=== PATIENT | male | born 1965 | race Caucasian/White ===

== ENCOUNTER 2017-04-12 12:41 | Observation (INO) | payer OTHER ==
--- NOTE | 2017-04-12 13:00 | RADIOLOGY REPORT (SQ) ---
EXAM DESCRIPTION: CT HEAD WITHOUT COMPLETED DATE/TIME: 04/12/2017 12:49 pm REASON FOR STUDY: STROKE COMPARISON: None. TECHNIQUE: Axial images acquired through the brain without intravenous contrast. Images reviewed wi th bone, brain and subdural windows. Images stored on PACS. All CT scanners at this facility use dose modulation, iterative reconstruction, and/or weight based d osing when appropriate to reduce radiation dose to as low as reasonably achievable (ALARA). [facility]: Dose Right [facility]: CareDose [facility]: Dose Right [facility]: Teradose 4D [facility]: [employer] RADIATION DOSE: mGy. LIMITATIONS: None. FINDINGS: VENTRICLES: Normal size and contour. CEREBRUM: No masses. No hemorrhage. No midline shift. There is a small focal relative low density area in the periventricular white matter on the left adjacent to the lateral ventricle which has the appearance of lacunar infarct. Normal lebron/white matter differentiation. CEREBELLUM: No masses. No hemorrhage. No alteration of density. No evidence for acute infarction. EXTRAAXIAL SPACES: No fluid collections. No masses. ORBITS AND GLOBE: No intra- or extraconal masses. Normal contour of globe without masses. CALVARIUM: No fracture. PARANASAL SINUSES: No fluid or mucosal thickening. SOFT TISSUES: No mass or hematoma. OTHER: No other significant finding. IMPRESSION: Small focal relative low density area in the periventricular white matter on the left as noted above which has the appearance of a lacunar infarct. No other significant intracranial abnorm alities were identified. Other findings as noted above COMMENT: Quality ID # [id number]: Final reports with documentation of one or more dose reduction techniques (e.g., Automated exposure control, adjustment of the mA and/or kV according to patient size, use of iterative reconstruction technique) TECHNICAL DOCUMENTATION: JOB ID: [id number] [employer]- All Rights Reserved
[2017-04-12 13:06] LABS: PARTIAL THROMBOPLASTIN TIME 26.5 SEC (23.5-35.8)
[2017-04-12 13:10] LABS: ABSOLUTE EOSINOPHILS # (AUTO) 0.1 10^3/uL (0.0-0.6); ABSOLUTE LYMPHOCYTES (AUTO) 2.8 10^3/uL (0.5-4.7); ABSOLUTE MONOCYTES (AUTO) 0.9 10^3/uL (0.1-1.4); ABSOLUTE NEUT (AUTO) 4.7 10^3/uL (1.7-8.2); BASOPHILS % (AUTO) 0.6 % (0-2); EOSINOPHILS % (AUTO) 1.2 % (0-6); HEMATOCRIT 48.5 % (37.9-51.0); HEMOGLOBIN 16.9 g/dL (13.5-17.0); LYMPHOCYTES % (AUTO) 32.2 % (13-45); MEAN CORPUSCULAR HEMOGLOBIN 30.8 pg (27.0-33.4); MEAN CORPUSCULAR HGB CONC 34.9 g/dL (32.0-36.0); MEAN CORPUSCULAR VOLUME 88 fl (80-97); MONOCYTES % (AUTO) 10.5 % (3-13); PLATELET COUNT 319 10^3/uL (150-450); RED BLOOD COUNT 5.49 10^6/uL (4.35-5.55); RED CELL DISTRIBUTION WIDTH 13.4 % (11.5-14.0); SEGMENTED NEUTROPHILS % (AUTO) 55.5 % (42-78); TOTAL CELLS COUNTED % (AUTO) 100 %; WHITE BLOOD COUNT 8.5 10^3/uL (4.0-10.5)
[2017-04-12 13:11] LABS: INTERNATIONAL RATION (INR) 0.94; PROTHROMBIN TIME 13.3 SEC (11.4-15.4)
--- NOTE | 2017-04-12 13:11 | ER Document Report ---
ED General - General Chief Complaint: S/S of Possible Stroke Stated Complaint: POSSIBLE STROKE Time Seen by Provider: 04/12/17 13:11 - HPI Patient complains to provider of: possible stroke Notes: 52-year-old man with history of TIAs in the past presents with concern for possible TIA. Patient is endorsing left upper extremity and left lower extremity decreased sensation and tingling. Patient thinks it started last night. Patient states he woke up this morning continue to have symptoms. Went to his PTSD support group. There the symptoms got worse. Patient presents NIH stroke scale 1. Speaking fluently no facial asymmetry. Denies nausea or vomiting. - Related Data Allergies/Adverse Reactions: No Known Allergies Allergy (Verified 04/12/17 13:51) Past Medical History - Social History Smoking Status: Unknown if Ever Smoked Family History: Reviewed & Not Pertinent - Past Medical History Cardiac Medical History: Reports: Hx Heart Attack - with stent placement, Hx Hypercholesterolemia Pulmonary Medical History: Denies: Hx Tuberculosis Past Surgical History: Reports: Hx Appendectomy - 1985. Denies: Hx Pacemaker - Immunizations Hx Diphtheria, Pertussis, Tetanus Vaccination: Yes Review of Systems - Review of Systems Constitutional: No symptoms reported EENT: No symptoms reported Cardiovascular: No symptoms reported Respiratory: No symptoms reported Gastrointestinal: No symptoms reported Genitourinary: No symptoms reported Male Genitourinary: No symptoms reported Musculoskeletal: No symptoms reported Skin: No symptoms reported Hematologic/Lymphatic: No symptoms reported Neurological/Psychological: Numbness Physical Exam - Vital signs Vitals: Resp 16 04/12/17 12:55 Interpretation: Normal - General General appearance: Appears well, Alert - HEENT Head: Normocephalic, Atraumatic Eyes: Normal Pupils: PERRL - Respiratory Respiratory status: No respiratory distress Chest status: Nontender Breath sounds: Normal Chest palpation: Normal - Cardiovascular Rhythm: Regular Heart sounds: Normal auscultation Murmur: No - Abdominal Inspection: Normal Distension: No distension Bowel sounds: Normal Tenderness: Nontender Organomegaly: No organomegaly - Back Back: Normal, Nontender - Extremities General upper extremity: Normal inspection, Nontender, Normal color, Normal ROM , Normal temperature General lower extremity: Normal inspection, Nontender, Normal color, Normal ROM , Normal temperature, Normal weight bearing. No: Mehran's sign - Neurological Neuro grossly intact: Yes Cognition: Normal Orientation: AAOx4 [place] Coma Scale Eye Opening: Spontaneous Edmar Coma Scale Verbal: Oriented [place] Coma Scale Motor: Obeys Commands Ed[place] Coma Scale Total: 15 Speech: Normal Motor strength normal: LUE, RUE, LLE, RLE Sensory: Normal - Psychological Associated symptoms: Normal affect, Normal mood - Skin Skin Temperature: Warm Skin Moisture: Dry Skin Color: Normal Course - Re-evaluation Re-evalutation: 04/12/17 14:07 Patient not a candidate for TPA outside window symptoms started about 6 hours ago. Patient also actually says it symptoms last night before bed. Extensive workup here unremarkable CAT scan shows no acute stroke. Patient be admitted to the hospital for further management of stroke, MRI, echocardiogram, ultrasound carotid - Vital Signs Vital signs: Temp Pulse Resp BP Pulse Ox 12 123/84 96 04/12/17 13:31 04/12/17 13:31 04/12/17 13:31 - Laboratory Result Diagrams: 04/12/17 12:32 04/12/17 12:32 - EKG Interpretation by Me Additional EKG results interpreted by me: 04/12/17 14:06 Normal sinus rhythm, no ST elevations or depressions, normal QRS Discharge - Discharge Clinical Impression: CVA (cerebral vascular accident) Condition: Stable Disposition: ADMITTED INPATIENT Admitting Provider: [facility] Admitted: Telemetry
--- NOTE | 2017-04-12 13:16 | RADIOLOGY REPORT (SQ) ---
EXAM DESCRIPTION: CHEST SINGLE VIEW COMPLETED DATE/TIME: 04/12/2017 12:54 pm REASON FOR STUDY: bed 12 stroke alert COMPARISON: January 2013 EXAM PARAMETERS: NUMBER OF VIEWS: One view. TECHNIQUE: Single frontal radiographic view of the chest acquired. RADIATION DOSE: NA LIMITATIONS: None. FINDINGS: LUNGS AND PLEURA: No opacities, masses or pneumothorax. No pleural effusion. Tiny pulmona ry nodule projected in the left mid lung field appears stable. Linear scarring or subsegmental atele ctasis is identified in the left costophrenic angle. MEDIASTINUM AND HILAR STRUCTURES: No masses. Contour normal. HEART AND VASCULAR STRUCTURES: Heart normal in size. Normal vasculature. BONES: No acute findings. HARDWARE: None in the chest. OTHER: No other significant finding. IMPRESSION: NO ACUTE RADIOGRAPHIC FINDING IN THE CHEST. TECHNICAL DOCUMENTATION: JOB ID: [id number] [employer]- All Rights Reserved
[2017-04-12 13:32] LABS: ALANINE AMINOTRANSFERASE 47 U/L (21-72); ALBUMIN 4.8 g/dL (3.5-5.0); ALKALINE PHOSPHATASE 82 U/L (38-126); ANION GAP 13 (5-19); ASPARTATE AMINO TRANSFERASE 31 U/L (17-59); BILIRUBIN,DIRECT 0.2 mg/dL (0.0-0.4); BILIRUBIN,TOTAL 0.7 mg/dL (0.2-1.3); BLOOD UREA NITROGEN 18 mg/dL (7-20); CARBON DIOXIDE 26 mmol/L (22-30); CHLORIDE 103 mmol/L (98-107); CREATINE KINASE 102 U/L (55-170); GLUCOSE 84 mg/dL (75-110); POTASSIUM 4.4 mmol/L (3.6-5.0); SODIUM 141.8 mmol/L (137-145); TOTAL PROTEIN 7.6 g/dL (6.3-8.2)
[2017-04-12 13:54] LABS: CREATINE KINASE MB 1.02 ng/mL (<4.55)
[2017-04-12 13:55] LABS: TROPONIN I < 0.012 ng/mL
[2017-04-12] MEDS ORDERED: TRAMADOL HCL 50 MG TABLET PO PRN (16:07)
[2017-04-12] MEDS ORDERED: ALPRAZOLAM 0.5 MG TABLET PO PRN (16:14)
[2017-04-12] MEDS ORDERED: HYDRALAZINE HCL INJ/PF 20 MG/1 ML SDV IV PRN (16:17)
[2017-04-12] MEDS ORDERED: DEXTROSE 40% GEL 15 GM TUBE PO PRN ×2 (16:21)
[2017-04-12] MEDS ORDERED: GLUCAGON,HUMAN RECOMB 1 MG INJ IM PRN (16:21)
[2017-04-12] MEDS ORDERED: DEXTROSE 50%-WATER 25 GM/50 ML DISP.SYRIN IV PRN ×2 (16:21)
[2017-04-12] MEDS ORDERED: ZOLPIDEM TARTRATE 5 MG TABLET PO PRN (16:21)
[2017-04-12] MEDS ORDERED: INSULIN LISPRO 100 UNIT/ML 3 ML VIAL SUBCUT PRN (16:21)
--- NOTE | 2017-04-12 16:38 | PDOC H&P ---
History of Present Illness Admission Date/PCP: 04/12/17 14:22 Patient complains of: Tingling in the left arm and left leg. History of Present Illness: MARCO A HEBERT is a 52 year old male known coronary artery disease and cerebrovascular disease. The patient has had several days of increasing tingling in the left upper extremity. When he woke up this morning he still had tingling in the left upper extremity. He also described worsening chest pressure. His chest pressure occurred at rest. He does have a history of coronary disease and has had intermittent unstable angina but he does have chronic chest pressure and angina. He also describes other symptoms of his head burning. This is not a new complaint for the patient. He went to his posttraumatic stress disorder meeting and when he got up to leave he felt dizzy and lightheaded. Then, the left side of his mouth became numb. Many of his symptoms are not new but have been waxing and waning over several months. Many of his PTSD medications were recently discharged by the [facility]. Approximately 9 months ago he was an inpatient at [facility] for psychiatric illness. The patient has had 3 heart catheterizations and has [address] Prior to this event he has had 2 transient ischemic attacks. Past Medical History Cardiac Medical History: Reports: Myocardial Infarction - with stent placement, Hyperlipidema, Hypertension Pulmonary Medical History: Reports: Sleep Apnea Denies: Tuberculosis Psychiatric Medical History: Reports: Depression - anxiety, Post Traumatic Stress Disorder Past Surgical History Past Surgical History: Reports: Appendectomy - 1985, Cardiac Catheterization Denies: Pacemaker Social History Information Source: Patient Smoking Status: Never Smoker Frequency of Alcohol Use: Rare Hx Recreational Drug Use: No Drugs: None Hx Prescription Drug Abuse: No - Advance Directive Resuscitation Status: Full Code Surrogate healthcare decision maker:: The patient states that his Shayna Hebert is his surrogate decision maker. She can be reached at [phone]. Family History Family History: Reviewed & Not Pertinent Parental Family History Reviewed: Yes - Father of [place] at age 57, mother had triple bypass, sister has coronary Children Family History Reviewed: Yes Sibling(s) Family History Reviewed.: Yes Medication/Allergy Home Medications: Alprazolam 0.5 mg PO BID PRN 01/07/12 Fluoxetine HCl [Sarafem] 40 mg PO DAILY 01/07/12 Topiramate [Topiragen] 25 - 100 mg PO QHS 01/07/12 Allergies/Adverse Reactions: No Known Allergies Allergy (Verified 04/12/17 13:51) Review of Systems Constitutional: PRESENT: fatigue, weakness Eyes: PRESENT: visual disturbances Ears: ABSENT: hearing changes Nose, Mouth, and Throat: PRESENT: headache(s) Breasts: ABSENT: as per HPI, other Cardiovascular: PRESENT: chest pain, dyspnea on exertion Respiratory: PRESENT: dyspnea Gastrointestinal: ABSENT: as per HPI, abdominal pain, bloating, coffee ground emesis, constipation, diarrhea, dysphagia, heartburn, hematemesis, hematochezia , melena, nausea, vomiting, other Genitourinary: PRESENT: nocturia Musculoskeletal: PRESENT: muscle weakness Integumentary: ABSENT: as per HPI, diaphoresis, erythema, lesions, pruritus, rash, wounds, other Neurological: PRESENT: abnormal speech, confusion, dizziness, lack of coordination, memory loss, numbness, paresthesias, weakness Psychiatric: PRESENT: anxiety, depression Endocrine: PRESENT: polyuria Hematologic/Lymphatic: ABSENT: as per HPI, easy bleeding, easy bruising, lymphadenopathy, other Allergic/Immunologic: ABSENT: as per HPI, seasonal rhinorrhea, other Physical Exam Vital Signs: Temp Pulse Resp BP Pulse Ox 98.6 F 70 14 119/81 97 04/12/17 15:28 04/12/17 15:31 04/12/17 15:28 04/12/17 15:28 04/12/17 15:28 Additional comments: The patient is an obese white male. He is conversant and answers questions appropriately and he is able to follow all commands. His level of alertness is normal. He did get up and walk from the hallway into his room and he was able to get into his bed without any assistance. The patient's facial appearance is noteworthy for anisocoria. The right pupil is approximately 2 mm larger than the left pupil. Both constrict to light briskly. The oropharynx demonstrates a Mallampati 3 airway. His neck is enlarged but otherwise supple. I was unable to palpate his thyroid gland. His lungs are clear to auscultation bilaterally. His cardiac exam is regular without murmurs, gallops or rubs. The abdomen is obese but soft. Bowel sounds are present in the lower quadrants. No guarding or rebound is noted and there are no hernias or masses present. The lower extremities are warm to touch without edema. The skin is, warm, dry and intact without lesions or rashes. The patient's right upper extremity is of normal strength with a normal deep tendon reflex. The right lower extremity is of normal strength with normal deep tendon reflex. Left lower extremity is of normal strength with a deep tendon reflex is diminished. Left upper extremity shows some cogwheeling with motion. However, patient moves all 4 extremities intermittently and purposefully. The patient's facial appearance does not demonstrate an obvious droop. He is not slurring his words. His addiction appears to be normal. Initially, his tongue was deviated to the right, but then it was midline. He does appear to have weakened abducens nerve on the left. Results Impressions: Head CT 04/12/17 00:00 IMPRESSION: Small focal relative low density area in the periventricular white matter on the left as noted above which has the appearance of a lacunar infarct. No other significant intracranial abnormalities were identified. Other findings as noted above Chest X-Ray 04/12/17 12:45 IMPRESSION: NO ACUTE RADIOGRAPHIC FINDING IN THE CHEST. Assessment & Plan - Diagnosis (1) CVA (cerebral vascular accident) Is this a current diagnosis for this admission?: Yes Plan: The patient's head CT does show a lacunar infarct. Chronicity is unknown. I have ordered a stat CTA of the head and neck based on his asymmetrical pupils. The patient will be maintained on aspirin and Effient. I have increased his dose of atorvastatin. He will undergo PT, OT and speech therapy evaluations. Depending on the results of the CTA of the head and neck I may or may not order carotid Doppler. I am not going to order an echocardiogram because the patient has had an echocardiogram last week and we will obtain these results if needed. This only demonstrated mild LV dysfunction, but the whole report was not available to me. (2) Coronary artery disease Is this a current diagnosis for this admission?: Yes Plan: We will continue aspirin, Effient, atorvastatin and metoprolol. I was unable to verify the patient's medication dosages but this will be confirmed when they are available. (3) Obstructive sleep apnea Is this a current diagnosis for this admission?: Yes Plan: The patient will use his CPAP machine while he is here. His is going to bring it in. (4) Morbid obesity Is this a current diagnosis for this admission?: Yes Plan: The patient takes metformin at home. I suspect that he has metabolic syndrome. Here, I am going to hold metformin because he will receive IV contrast. He will get fingersticks and be placed on sliding scale insulin protocol. (5) Posttraumatic stress disorder Is this a current diagnosis for this admission?: Yes Plan: Continue Prozac and Xanax. Continue Ambien for sleep. - Time Time Spent: 30 to 50 Minutes - Inpatient Certification Medical Necessity: Failure to Improve With Outpatient Therapy, Significant Comorbidiites Make Outpatient Treatment Too Risky, Need Close Monitoring Due to Risk of Patient Decompensation, Need for Neurological Checks, Risk of Complication if Not Cared For in Hospital, Risk of Diagnosis Which Will Require Inpatient Eval/Care/Monitoring - Plan Summary Plan Summary: The patient will be admitted to observation. He will undergo the workup as described above. I anticipate that he will be here less than 2 midnights.
[2017-04-12] MEDS ORDERED: ASPIRIN 81 MG TABLET, CHEWABLE PO ONE (16:49)
[2017-04-12] MEDS ORDERED: ASPIRIN 81 MG TABLET, ENT COATED PO SCH (17:00)
[2017-04-12 17:16] LABS: INTERNATIONAL RATION (INR) 0.94; PARTIAL THROMBOPLASTIN TIME 26.9 SEC (23.5-35.8); PROTHROMBIN TIME 13.2 SEC (11.4-15.4)
[2017-04-12] MEDS ORDERED: PRASUGREL HCL 10 MG TABLET PO ONE (17:30)
[2017-04-12 17:36] LABS: CREATINE KINASE MB 0.85 ng/mL (<4.55)
[2017-04-12 17:44] LABS: TROPONIN I < 0.012 ng/mL
--- NOTE | 2017-04-12 18:20 | RADIOLOGY REPORT (SQ) ---
EXAM DESCRIPTION: CTA NECK COMPLETED DATE/TIME: 04/12/2017 5:58 pm REASON FOR STUDY: CVA COMPARISON: None. TECHNIQUE: Axial dynamic scanning technique with dynamic contrast enhancement through the extra-pouring crane operator nial carotid and vertebral arteries. Multiplanar reconstruction. 3-D MIPS and Volume-rendered imag es acquired at the workstation and saved to PACS. Images are reviewed in soft tissue, bone, lung w indows. All CT scanners at this facility use dose modulation, iterative reconstruction, and/or weight based d osing when appropriate to reduce radiation dose to as low as reasonably achievable (ALARA). [facility]: Dose Right [facility]: CareDose [facility]: Dose Right [facility]: Teradose 4D [facility]: [employer] CONTRAST TYPE AND DOSE: contrast/concentration: Isovue 370.00 mg/ml; Total Contrast Delivered: 70.0 ml; Total Saline Delivered: 75.0 ml RENAL FUNCTION: Creatinine 1.25 LIMITATIONS: None. FINDINGS: AORTIC ARCH: Normal three-vessel origin. Bilateral subclavian arteries are patent. No d issection. RIGHT CAROTIDS: Patent common, internal and external carotid arteries without suggestion of significa nt stenosis or irregular plaque. No dissection. RIGHT VERTEBRAL: Patent. No dissection. LEFT CAROTIDS: Patent common, internal and external carotid arteries without suggestion of significan t stenosis or irregular plaque. No dissection. LEFT VERTEBRAL: Patent. No dissection. OTHER: Multiple bilateral prominent cervical lymph nodes are identified OTHER: 3-D reconstructions confirm findings. IMPRESSION: NORMAL CTA OF THE EXTRA-CRANIAL CAROTID AND VERTEBRAL ARTERIES. COMMENT: Quality ID #[id number]: Measurements of distal internal carotid diameter were used as the denomina tor for stenosis measurement. TECHNICAL DOCUMENTATION: JOB ID: [id number] Quality ID # 436: Final reports with documentation of one or more dose reduction techniques (e.g., Au tomated exposure control, adjustment of the mA and/or kV according to patient size, use of iterative reconstruction technique) 2010 [employer]- All Rights Reserved
--- NOTE | 2017-04-12 18:23 | RADIOLOGY REPORT (SQ) ---
EXAM DESCRIPTION: CTA HEAD COMPLETED DATE/TIME: 04/12/2017 5:59 pm REASON FOR STUDY: CVA COMPARISON: None. TECHNIQUE: Post IV contrast scanning, thin section axial imaging through the brain to evaluate the a rterial structures. Source and MIP images are saved and reviewed on PACS. Advanced 3D imaging as volume-rendering, MIPs, SSD performed? yes All CT scanners at this facility use dose modulation, iterative reconstruction, and/or weight based d osing when appropriate to reduce radiation dose to as low as reasonably achievable (ALARA). [facility]: Dose Right [facility]: CareDose [facility]: Dose Right [facility]: Teradose 4D [facility]: [employer] CONTRAST TYPE AND DOSE: 70 mL Isovue 370 RENAL FUNCTION: Creatinine 1.25 LIMITATIONS: None. FINDINGS: [place]: The anterior, middle, posterior cerebral arteries are all patent. No ev idence of aneurysm or focal stenosis. POSTERIOR CIRCULATION: The distal vertebral arteries are patent as is the basilar artery. No aneurysm . BRAIN: No gross enhancing lesions as visualized. The superior cerebral hemispheres are not included in the field of view. BONES: Intact as visualized. SINUSES: No fluid or mucosal thickening. OTHER: No other significant finding. IMPRESSION: NO CTA EVIDENCE OF STENOSIS OR ANEURYSM OF THE [place]. TECHNICAL DOCUMENTATION: JOB ID: [id number] Quality ID # [id number]: Final reports with documentation of one or more dose reduction techniques (e.g., Au tomated exposure control, adjustment of the mA and/or kV according to patient size, use of iterative reconstruction technique) 2010 [employer]- All Rights Reserved
[2017-04-12] MEDS: METOPROLOL TARTRATE 25 MG TABLET PO SCH (21:57)
[2017-04-12] MEDS ORDERED: ATORVASTATIN CALCIUM 80 MG TABLET PO SCH (22:00)
[2017-04-12 23:27] LABS: CREATINE KINASE MB 0.64 ng/mL (<4.55)
[2017-04-12 23:28] LABS: TROPONIN I < 0.012 ng/mL
[2017-04-13 05:22] LABS: CHOLESTEROL 219.11 mg/dL (0-200); TRIGLYCERIDES 191 mg/dL (<150)
[2017-04-13 05:33] LABS: DIRECT LDL 141 mg/dL (<100)
[2017-04-13 05:35] LABS: CREATINE KINASE MB 0.59 ng/mL (<4.55)
[2017-04-13 05:43] LABS: TROPONIN I < 0.012 ng/mL; VLDL CHOLESTEROL 38.2 mg/dL (10-31)
--- NOTE | 2017-04-13 09:23 | RADIOLOGY REPORT (SQ) ---
EXAM DESCRIPTION: MRI HEAD WITHOUT COMPLETED DATE/TIME: 04/13/2017 9:02 am REASON FOR STUDY: acute neurologic syndrome COMPARISON: None. TECHNIQUE: Multiplanar imaging includes non-contrasted T1, T2, FLAIR, and diffusion with ADC map seq uences. Images stored on PACS. LIMITATIONS: None. FINDINGS: ANATOMY: No anomalies. Normal vascular flow voids. Pituitary fossa normal. CSF SPACES: Normal in size and contour. No hemorrhage. CEREBRUM: Sulci and gyri normal in size and contour. Normal white matter signal on FLAIR imaging. No evidence of hemorrhage, mass, or extraaxial fluid collection. POSTERIOR FOSSA: No signal alteration. No hemorrhage. No edema, masses or mass effect. Internal susanna tory canals, cerebello-pontine angles, mastoids normal. DIFFUSION IMAGING: Negative for acute or sub-acute infarction. ORBITS: No masses. Globes normal. PARANASAL SINUSES: No fluid levels. Mucosa normal. OTHER: No other significant finding. IMPRESSION: NORMAL MRI OF THE BRAIN WITHOUT INTRAVENOUS GADOLINIUM CONTRAST. EVIDENCE OF ACUTE STROKE: NO. TECHNICAL DOCUMENTATION: JOB ID: [id number] [employer]- All Rights Reserved
[2017-04-13] MEDS ORDERED: FLUOXETINE HCL 40 MG PO SCH (10:00)
[2017-04-13] MEDS ORDERED: ASPIRIN 81 MG TABLET, ENT COATED PO SCH (10:00)
[2017-04-13] MEDS ORDERED: PRASUGREL HCL 10 MG TABLET PO SCH (10:00)
[2017-04-13] MEDS ORDERED: FLUOXETINE HCL 20 MG CAPSULE PO SCH (10:00)
[2017-04-13] MEDS: METOPROLOL TARTRATE 25 MG TABLET PO SCH (10:49)
--- NOTE | 2017-04-13 11:06 | EKG REPORT ---
SEVERITY:- BORDERLINE ECG - SINUS BRADYCARDIA BORDERLINE INFERIOR Q WAVES : Confirmed by: Nelly Cooper 13-Apr-2017 11:05:17
--- NOTE | 2017-04-13 11:06 | EKG REPORT ---
SEVERITY:- ABNORMAL ECG - SINUS RHYTHM NONSPECIFIC INTRAVENTRICULAR CONDUCTION DELAY BORDERLINE INFERIOR Q WAVES : Confirmed by: Nelly Cooper 13-Apr-2017 11:05:23
--- NOTE | 2017-04-13 14:27 | PDOC DISCHARGE SUMMARY ---
General - Admit/Disc Date/PCP Admission Date/Primary Care Provider: 04/12/17 14:22 Discharge Date: 04/13/17 - Discharge Diagnosis (1) Transient ischemic attack (TIA) Is this a current diagnosis for this admission?: Yes (2) CVA (cerebral vascular accident) Is this a current diagnosis for this admission?: No (3) Coronary artery disease Is this a current diagnosis for this admission?: Yes (4) Obstructive sleep apnea Is this a current diagnosis for this admission?: Yes (5) Morbid obesity Is this a current diagnosis for this admission?: Yes (6) Posttraumatic stress disorder Is this a current diagnosis for this admission?: Yes - Additional Information Resuscitation Status: Full Code Discharge Diet: Other (Comments) - Low fat, low sodium diet Prescriptions: Atorvastatin Calcium [Lipitor 40 mg Tablet] 80 mg PO QPM 30 Days #60 tablet Home Medications: Alprazolam [Xanax] 1 mg PO BID 04/13/17 Aripiprazole [Abilify 10 mg Tablet] 5 mg PO DAILY 04/13/17 Aspirin [Aspirin 81 mg Chewable Tablet] 81 mg PO DAILY 04/13/17 Atorvastatin Calcium [Lipitor 40 mg Tablet] 80 mg PO QPM 30 Days #60 tablet Fluoxetine HCl [Prozac] 40 mg PO DAILY 04/13/17 Metoprolol Succinate [Toprol Xl] 25 mg PO DAILY 04/13/17 Prasugrel HCl [Effient 10 mg Tablet] 10 mg PO DAILY 04/13/17 Zolpidem Tartrate [Ambien] 10 mg PO QHS 04/13/17 History of Present Illness History of Present Illness: MARCO A HEBERT is a 52 year old male known coronary artery disease and cerebrovascular disease. The patient has had several days of increasing tingling in the left upper extremity. When he woke up this morning he still had tingling in the left upper extremity. He also described worsening chest pressure. His chest pressure occurred at rest. He does have a history of coronary disease and has had intermittent unstable angina but he does have chronic chest pressure and angina. He also describes other symptoms of his head burning. This is not a new complaint for the patient. He went to his posttraumatic stress disorder meeting and when he got up to leave he felt dizzy and lightheaded. Then, the left side of his mouth became numb. Many of his symptoms are not new but have been waxing and waning over several months. Many of his PTSD medications were recently discontinued by the [facility]. Approximately 9 months ago he was an inpatient at [facility] for psychiatric illness. The patient has had 3 heart catheterizations and has [address]. Prior to this event he has had 2 transient ischemic attacks. Hospital Course Hospital Course: The patient presented with signs and symptoms concerning for a transient ischemic attack versus stroke. The patient's initial head CT was concerning for a subacute lacunar infarct. Further testing included a CT angiogram of the head and neck. The [place] is noted to be normal without aneurysmal dilatation or other defects. The patient does not have any significant carotid stenosis. The patient was monitored on telemetry. He did have periods of sinus bradycardia, but per his report this is not new. I did not perform an echocardiogram because the patient had an echocardiogram last week. He was notified that the results demonstrate a low normal ejection fraction. The patient will need to follow-up with his toaster operator regarding the echocardiogram. During this hospitalization lab work indicates that his cholesterol profile is not optimized. His triglyceride level is elevated. His LDL is elevated and his HDL is low for his underlying coronary artery disease. Therefore, I have increased his dose of atorvastatin from 40 mg per day to 80 mg per day. The patient has a normal hemoglobin A1c of 5.7. At this point time I have not renewed his metformin. He will need to follow-up with his primary care doctor and have his creatinine checked prior to reinitiating the metformin. This is secondary to the fact that he received IV contrast for the angiograms. On the day of discharge the patient does appear to have persistent numbness and tingling particularly of the left upper extremity with a question of pronator drift on the left. He may have some cervical disc disease and spinal stenosis. I have recommended that he follow-up with his primary healthcare administrative assistant for further evaluation. Upon discharge dietary counseling was given. The patient does not eat an appropriate diet. He frequently eats fast foods that are high in fat and sodium. I did recommend that the patient try to change his diet to incorporate more fresh fruits and vegetables and avoid foods high in fat and sodium. Physical Exam Vital Signs: Temp Pulse Resp BP Pulse Ox 98.4 F 60 18 99/71 L 97 04/13/17 07:53 04/13/17 08:00 04/13/17 08:00 04/13/17 08:00 04/13/17 08:00 Intake & Output 04/12/17 04/13/17 04/14/17 06:59 06:59 06:59 Intake Total 220 Balance 220 Weight 126.7 kg Additional comments: Again, the patient is noted to have anisocoria. The left pupil is about 2 mm smaller than the right. Otherwise, the patient's facial appearance is unremarkable. The patient's cognition and mentation are normal. The patient's lungs are clear to auscultation bilaterally. His cardiac exam is regular without murmurs, gallops or rubs. The abdomen is obese but soft. Bowel sounds are present in the lower quadrants. He does not have any guarding or rebound noted. The lower extremities are unremarkable without pitting edema. The skin is warm, dry and intact without lesions or rashes. The patient is easily able to follow commands. He can move all 4 extremities. The patient continues to complain of sensation changes around the chin on the left and over the left upper extremity. He has mild pronator drift on the left. His gait and station however are completely normal. His strength is also normal in all 4 extremities. Initially, strength appeared to be less in the left upper extremity but with reinforcement his strength appears to be normal. Results Laboratory Results: 04/13/17 04/13/17 04:29 04:29 Triglycerides 191 H Cholesterol 219.11 H LDL Cholesterol Direct 141 H VLDL Cholesterol 38.2 H HDL Cholesterol 36 L TSH 1.76 04/12/17 04/12/17 04/12/17 16:35 16:35 22:35 Creatine Kinase 89 79 CK-MB (CK-2) 0.85 Troponin I < 0.012 04/12/17 04/13/17 04/13/17 22:35 04:29 04:29 Creatine Kinase 73 CK-MB (CK-2) 0.64 0.59 Troponin I < 0.012 < 0.012 Impressions: Head CT 04/12/17 00:00 IMPRESSION: Small focal relative low density area in the periventricular white matter on the left as noted above which has the appearance of a lacunar infarct. No other significant intracranial abnormalities were identified. Other findings as noted above Head CTA 04/12/17 00:00 IMPRESSION: NO CTA EVIDENCE OF STENOSIS OR ANEURYSM OF THE [place]. Neck CTA 04/12/17 00:00 IMPRESSION: NORMAL CTA OF THE EXTRA-CRANIAL CAROTID AND VERTEBRAL ARTERIES. Chest X-Ray 04/12/17 12:45 IMPRESSION: NO ACUTE RADIOGRAPHIC FINDING IN THE CHEST. Head MRI 04/13/17 07:30 IMPRESSION: NORMAL MRI OF THE BRAIN WITHOUT INTRAVENOUS GADOLINIUM CONTRAST. EVIDENCE OF ACUTE STROKE: NO. Plan Discharge Plan: 1. Follow-up with primary healthcare administrative assistant. Follow-up testing for cervical disc disease can be considered. 2. Follow-up with cardiology as scheduled. 3. Patient was told to return to the emergency department for worsening chest pain, paresthesias or weakness. Time Spent: Less than 30 Minutes
[2017-04-13 15:25] VITALS: BP 119/81
== END 2017-04-13 15:39 | disposition home or self-care (01) ==
LOC: ER 12:41 → EH 14:22 → INTOOBSV 14:22 → 3W 15:13
PROVIDERS: ADMIT Family Medicine; ATTEND Family Medicine
DX: G45.9 Transient cerebral ischemic attack, unspecified (principal); I25.110 Atherosclerotic heart disease of native coronary artery with unstable angina pectoris; Z95.5 Presence of coronary angioplasty implant and graft; G47.33 Obstructive sleep apnea (adult) (pediatric); E66.01 Morbid (severe) obesity due to excess calories; I67.9 Cerebrovascular disease, unspecified; F43.10 Post-traumatic stress disorder, unspecified; E78.1 Pure hyperglyceridemia; H57.02 Anisocoria; F41.9 Anxiety disorder, unspecified; F32.9 Major depressive disorder, single episode, unspecified; R27.8 Other lack of coordination; R20.2 Paresthesia of skin; R20.0 Anesthesia of skin; I25.2 Old myocardial infarction; Z79.82 Long term (current) use of aspirin; Z79.899 Other long term (current) drug therapy; Z79.02 Long term (current) use of antithrombotics/antiplatelets; Z86.73 Personal history of transient ischemic attack (TIA), and cerebral infarction without residual deficits; Z90.49 Acquired absence of other specified parts of digestive tract; Z82.49 Family history of ischemic heart disease and other diseases of the circulatory system
CPT/HCPCS: 93005 ×2; 99285; 36415 ×2; 82553 ×2; 82962 ×2; 82550 ×2; 84443; 85025; 85610; 85730; 80053; 84484 ×2; 83036; 80061; 70551; 71045; 70450; 70496; 70498; 93010 ×2; 97163; 92610; 97167; G0378 ×2; J3490